=== PATIENT | female | born 1965 | race Caucasian/White ===

== ENCOUNTER 2018-07-18 09:26 | Day surgery (SDC) | payer BC ==
[2018-07-18] MEDS ORDERED: PROPOFOL 40 ML (11:10)
[2018-07-18] MEDS ORDERED: LIDOCAINE 2% (SDV) 5 ML INJ (11:10)
== END 2018-07-18 14:38 | disposition home or self-care (01) ==
LOC: GIL 09:26
DX: Z12.11 Encounter for screening for malignant neoplasm of colon (principal); K64.8 Other hemorrhoids
CPT/HCPCS: 45378